=== PATIENT | female | born 1985 | race Two or more races ===

== ENCOUNTER 2025-03-27 13:16 | Emergency (ER) | payer MEDICAID, SELFPAY ==
[2025-03-27 13:16] VITALS: BMI 37.8
[2025-03-27 13:33] VITALS: BP 160/100; PULSE 89; RESP 17; TEMP 36.7; O2SAT 100
--- NOTE | 2025-03-27 14:28 | EDNOTE_ITS ---
ED Dental RME/HPI General Chief complaint: Dental/Oral/Throat Stated complaint: L UPPER TOOTH ABSCESS Time Seen by Provider: 03/27/25 14:28 Arrival date/time: 03/27/25 13:16 This is a 39-year-old female that comes into the emergency room with complaints of mild left sided facial swelling and left upper back molar tooth pain. Patient states she is currently getting dental work done and they are removing a bunch to teeth. Patient denies any other symptoms. Related Data Previous Rx's ?Medication ?Instructions ?Recorded amoxicillin 875 mg-potassium 1 tab PO Q12H #14 tabs clavulanate 125 mg tablet ibuprofen 800 mg tablet 800 mg PO Q6H PRN pain #14 t abs 03/27/25 Allergies Allergy/AdvReac Type Severity Reaction Status Date / Time No Known Allergies Allergy Verified 03/27/25 13:19 Review of Systems Review of Systems Systems Reviewed: All systems reviewed, normal except as documented Past Medical History Past Medical History CARDIAC: Negative Congestive Heart Failure RESPIRATORY: Negative Chronic Obstructive Pulmonary Disease (COPD) GENITOURINARY: Negative Renal Disease ENDOCRINE: Positive Diabetes Mellitus Type 2; Negative Diabetes Mellitus Type 1 OTHER HISTORY: Negative Blood Transfusions Social History SMOKING STATUS: Never smoker Travel History EBOLA RISK: No ED Exam Narrative Physical exam: VITAL SIGNS: Reviewed. GENERAL APPEARANCE: Alert and interactive, follows commands, no acute distress HEAD AND FACE: Non-traumatic. ENT: PERRL, conjuctiva pink and clear, eyelid no trauma, Mucous membrane moist. Mild swelling to the left side of her face NECK: Supple, nontender, no nuchal rigidity. CHEST: No tenderness, no crepitus, no paradoxical movement, no retractions. LUNGS: breathing even and unlabored HEART: Regular rate, cap refill less than 2 seconds ABDOMEN: Soft, nondistended, no guarding, nontender, no rebound, no masses NEUROLOGICAL: Gross motor function intact sensory function intact, Appropriate for age. MUSCULOSKELETAL: low back nontender, full range of motion. EXTREMITIES: No redness no swelling no skin breakdown on bilateral foot and leg. Distal neurovascular status intact bilateral foot SKIN: Color pink, dry Course Orders Category Date Time Status Amoxicillin/Pot Clav 875 [Augmentin 875] Med 03/27/25 14:28 Discontinued 1 tab PO X1 ONE HYDROcodone*/APAP 5/325 [Wilson 5/325] Med 03/27/25 14:28 Discontinued 1 tab PO X1 ONE Ibuprofen Tab [Motrin Tab] Med 03/27/25 14:28 Discontinued 800 mg PO X1 ONE Ondansetron Odt [Zofran Odt] Med 03/27/25 14:28 Discontinued 4 mg PO X1 ONE Vital Signs Vital signs: Vital Signs Temperature 98.1 F 03/27/25 13:33 Pulse Rate 89 03/27/25 13:33 Respiratory Rate 17 03/27/25 13:33 Blood Pressure 160/100 H 03/27/25 13:33 Pulse Oximetry (%) 100 03/27/25 13:33 Oxygen Delivery Method Room Air 03/27/25 13:33 Dental / Oral MDM Narrative MDM Narrative:: Spoke to patient at length. Patient already has a follow-up appointment with dentist. Will treat for early dental abscess/cellulitis. Patient told to come back to the emergency room if symptoms change or worsen. Patient verbalized understanding and is feels comfortable plan of care. Dragon dictation: Although this document has been carefully reviewed, there may still be some phonetic and other typographical errors. These errors are purely grammatical due to imperfections in the software program and should not be construed in any way to compromise the substance of the patient's medical care during this visit. Medications / Prescriptions Medication administrations:: Medication Administration History Discontinued Medications Hydrocodone Bitart/Acetaminophen (Hydrocodone/Apap 5/325 Tablet) 1 tab PO X1 ONE Stop: 03/27/25 14:29 Amoxicillin/Clavulanate Potassium (Amoxicillin/Pot Clav 875 Tablet) 1 tab PO X1 ONE Stop: 03/27/25 14:29 Ibuprofen (Ibuprofen Tab 400 Mg Tablet) 800 mg PO X1 ONE Stop: 03/27/25 14:29 Ondansetron HCl (Ondansetron Odt 4 Mg Tabrap) 4 mg PO X1 ONE; Protocol Stop: 03/27/25 14:29 Discharge Plan Plan Patient Disposition: HOME (Self Care) Patient condition on transfer: Stable Prescriptions/Referrals Prescriptions/Med Rec: New amoxicillin-pot clavulanate 875-125 mg tablet 1 tab PO Q12H Qty: 14 0RF ibuprofen 800 mg tablet 800 mg PO Q6H PRN (Reason: pain) Qty: 14 0RF Referrals: Antwan,Danae, PA-C [Primary Care Provider] - In 1 week Problem List Clinical Impression: Dental abscess, Cellulitis Patient/Caregiver Discharge Instructions Discharge Activity: activity as tolerated Education Materials: ED Cellulitis Additional Instructions: Follow up with primary provider in 1-2 days. Come back to ED if symptoms change or worsen Print Language: Khmer Stand Alone Forms: [employer] Award Info., Work/School Release, Patient Portal Info Letter PA/MENTAL HEALTH SPECIALIST Supervising Physician PA/MENTAL HEALTH SPECIALIST Supervising Physician: [email or web address]
[2025-03-27] MEDS: AMOXICILLIN/POT CLAV 875 TABLET 1 TAB PO (14:38)
[2025-03-27] MEDS: IBUPROFEN TAB 400 MG TABLET 800 MG PO (14:38)
[2025-03-27] MEDS: HYDROcodone/APAP 5/325 TABLET 1 TAB PO (14:38)
[2025-03-27] MEDS: ONDANSETRON ODT 4 MG TABRAP PO (14:39)
== END 2025-03-27 14:45 | disposition home or self-care (01) ==
PROVIDERS: Emergency Provider Emergency Medicine; PCP Physician Assistant Medical
DX: K04.7 Periapical abscess without sinus (principal); K12.2 Cellulitis and abscess of mouth
CPT/HCPCS: 99281; Q0162; A9270